=== PATIENT | female | born 2005 | race Two or more races ===

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

== ENCOUNTER → 2025-02-11 | Outpatient (REF) | payer BC ==
[2025-02-11 18:48] LABS: IRON (FE) 99 UG/DL (50-170)
[2025-02-11 18:50] LABS: MONO SCRN NEGATIVE (NEGATIVE); TOTAL 25(OH) VITAMIN D 87.5 NG/ML (20.0-100.0)
[2025-02-11 18:51] LABS: VITAMIN B12 LEVEL 1088 PG/ML (211-911)
[2025-02-12 12:12] LABS: MAGNESIUM LEVEL 1.5 MG/DL (1.8-2.4); PHOSPHORUS LEVEL 3.3 MG/DL (2.5-4.9)
== END ==
LOC: M LAB REF 17:00
PROVIDERS: ATTEND Physician Assistant Medical
DX: Z01.89 Encounter for other specified special examinations (principal)

== ENCOUNTER → 2025-02-11 | Outpatient (REF) | payer BC ==
[2025-02-11 18:17] LABS: BASO # 0.0 10^3/uL (0.0-0.2); BASO % 0.3 % (0.0-1.0); EOS # 0.0 10^3/uL (0.0-0.5); EOS % 0.5 % (0.0-3.0); LYMPH # 1.4 10^3/uL (1.5-5.0); LYMPH % 18.9 % (24.0-44.0); MONO # 0.5 10^3/uL (0.0-0.8); MONO % 7.0 % (2.0-8.0); NEUTROPHILS # 5.4 10^3/uL (1.5-8.5); NEUTROPHILS % 73.0 % (36.0-66.0); PLATELET COUNT, AUTOMATED 229 10^3/uL (150-450)
[2025-02-11 18:49] LABS: ALT/SGPT 25 U/L (7.0-40); AST/SGOT 30 U/L (<34); CALCIUM LEVEL 9.6 MG/DL (8.5-10.1); CARBON DIOXIDE LEVEL 26 MMOL/L (20-31); CHLORIDE LEVEL 102 MMOL/L (98-107); CHOLESTEROL LEVEL 193 MG/DL (<200); CHOLESTEROL RISK RATIO 2.62 (<5); CREATININE FOR GFR 0.87 MG/DL (0.55-1.30); GLOMERULAR FILTRATION RATE > 90.0 (>60); LDL CHOLESTEROL 105.0 MG/DL (<100); NON-HDL-C 119.6 MG/DL; POTASSIUM SERUM 4.3 MMOL/L (3.5-5.1); SODIUM LEVEL 140 MMOL/L (136-145); TRIGLYCERIDES LEVEL 73 MG/DL (<150)
[2025-02-11 18:52] LABS: FREE T4 0.98 NG/DL (0.83-1.43)
== END ==
LOC: M LAB REF 16:58
PROVIDERS: ATTEND Family Medicine
DX: Z13.220 Encounter for screening for lipoid disorders (principal); Z13.29 Encounter for screening for other suspected endocrine disorder

== ENCOUNTER → 2025-05-20 | Outpatient (REF) | payer BC ==
[2025-05-20 22:32] LABS: BASO # 0.0 10^3/uL (0.0-0.2); BASO % 0.2 % (0.0-1.0); EOS # 0.0 10^3/uL (0.0-0.5); EOS % 0.3 % (0.0-3.0); LYMPH # 2.1 10^3/uL (1.5-5.0); LYMPH % 17.9 % (24.0-44.0); MONO # 0.8 10^3/uL (0.0-0.8); MONO % 7.0 % (2.0-8.0); NEUTROPHILS # 8.8 10^3/uL (1.5-8.5); NEUTROPHILS % 74.2 % (36.0-66.0); PLATELET COUNT, AUTOMATED 225 10^3/uL (150-450)
[2025-05-20 22:40] LABS: RHEUMATOID FACTOR QUANT < 3.5 IU/ML (<14)
[2025-05-20 22:41] LABS: ALT/SGPT 23 U/L (7.0-40); AST/SGOT 26 U/L (<34); C REACTIVE PROTEIN QUANTITATIV < 0.50 MG/DL (<1.0); CALCIUM LEVEL 9.1 MG/DL (8.5-10.1); CARBON DIOXIDE LEVEL 28 MMOL/L (20-31); CHLORIDE LEVEL 104 MMOL/L (98-107); CREATININE FOR GFR 0.80 MG/DL (0.55-1.30); GLOMERULAR FILTRATION RATE > 90.0 (>60); IRON (FE) 48 UG/DL (50-170); MAGNESIUM LEVEL 1.7 MG/DL (1.8-2.4); PHOSPHORUS LEVEL 4.1 MG/DL (2.5-4.9); POTASSIUM SERUM 4.2 MMOL/L (3.5-5.1); SODIUM LEVEL 141 MMOL/L (136-145)
[2025-05-20 22:42] LABS: TOTAL 25(OH) VITAMIN D 64.7 NG/ML (20.0-100.0)
[2025-05-20 22:43] LABS: VITAMIN B12 LEVEL 671 PG/ML (211-911)
[2025-05-20 23:00] LABS: FREE T4 1.05 NG/DL (0.89-1.76); MONO SCRN NEGATIVE (NEGATIVE)
[2025-05-23 16:17] LABS: EBV AB TO NUCLEAR ANTIGEN 238.00 U/mL (<18.00); EBV VIRAL CAPSID AG IGM < 36.00 U/mL (<36.00)
== END ==
LOC: M LAB REF 22:14
PROVIDERS: ATTEND Physician Assistant Medical
DX: M25.9 Joint disorder, unspecified (principal); R53.83 Other fatigue; R53.81 Other malaise